=== PATIENT | male | born 1995 | race Caucasian/White ===

== ENCOUNTER 2017-05-03 21:51 | Emergency (ER) | payer BC ==
[~2017-05-03] VITALS: Ht 175.3 cm; Wt 52.2 kg
[~2017-05-03 21:51] MED LIST: ALBUTEROL17 GM INH; AMOXICILLIN875 MG PO; NO MEDICATIONS; PREDNISONE PO
== END 2017-05-03 23:39 | disposition home or self-care (01) ==
LOC: SED 21:51
DX: L23.7 Allergic contact dermatitis due to plants, except food (principal); J45.909 Unspecified asthma, uncomplicated; F17.200 Nicotine dependence, unspecified, uncomplicated
CPT/HCPCS: 96372; 99282; J2930